=== PATIENT | female | born 1990 | race Hispanic/Latino ===

== ENCOUNTER 2019-08-31 10:59 | Observation (INO) | payer OTHER ==
[~2019-08-31] VITALS: Ht 160 cm; Wt 97.5 kg
[2019-08-31 11:56] LABS: APPEARANCE,URINE Turbid (CLEAR); BILIRUBIN,URINE Small (NEGATIVE); COLOR,URINE Dark Yellow (YELLOW); GLUCOSE, URINE (UA) Negative (NEGATIVE); KETONES,URINE >=80 mg/dL (NEGATIVE); LEUKOCYTE ESTERASE ,URINE Trace (NEGATIVE); NITRATE,URINE Negative (NEGATIVE); OCCULT BLOOD,URINE Negative (NEGATIVE); PH,URINE 6.5 (5.0-8.0); PROTEIN,URINE POS 2+ mg/dL (NEGATIVE)
[2019-08-31] MEDS ORDERED: LACTATED RINGERS 1000ML IV SCH (12:00)
[2019-08-31] MEDS ORDERED: ACETAMINOPHEN EXTRA STRENGTH 500 MG TABLET PO SCH (12:00)
[2019-08-31] MEDS ORDERED: ACETAMINOPHEN EXTRA STRENGTH 500 MG TABLET ONE (12:02)
[2019-08-31 12:14] LABS: MUCUS,URINE Moderate LPF (None Seen); SQUAMOUS EPITHELIAL CELL,UR Moderate /HPF (0-2)
[2019-08-31] MEDS ORDERED: HYDROXYZINE HCL 50 MG/ML 2 ML VIAL IM SCH (12:15)
[2019-08-31] MEDS ORDERED: MAGNESIUM HYDROXIDE 30 ML/UDCUP PO SCH (12:15)
[2019-08-31 12:16] LABS: BACTERIA,URINE Few /HPF (None Seen); RBC,URINE None Seen /HPF (0-1); WBC,URINE 0-1 /HPF (0-1)
[2019-08-31] MEDS ORDERED: PHARMACY COMMUNICATION MISC SCH (14:15)
[2019-08-31 14:42] LABS: BASOPHILS % (AUTO) 0.2 % (0.0-5.0); EOSINOPHILS % (AUTO) 2.5 % (0.0-8.0); HEMATOCRIT 34.1 % (36-48); LYMPHOCYTES % (AUTO) 8.4 % (21.0-51.0); MEAN CORPUSCULAR HEMOGLOBIN 29.2 pg (27.0-33.0); MEAN CORPUSCULAR HGB CONC 33.7 g/dL (32.0-36.0); MEAN CORPUSCULAR VOLUME 86.5 fL (79-99); MONOCYTES % (AUTO) 4.5 % (3.0-13.0); PLATELET COUNT (AUTO) 182 K/uL (130-400); RED BLOOD CELL COUNT(AUTO) 3.94 MIL/uL (4.00-5.50); WHITE BLOOD COUNT (AUTO) 9.9 K/uL (4.8-10.8)
[2019-08-31] MEDS ORDERED: DEXTROSE 5% IV SCH (15:00)
[2019-08-31] MEDS ORDERED: ZIDOVUDINE IV SCH (15:00)
[2019-08-31] MEDS ORDERED: WATER IV SCH (15:00)
== END 2019-08-31 16:00 | disposition home or self-care (01) ==
LOC: EDH 10:59 → LDH 11:00
PROVIDERS: ADMIT Obstetrics & Gynecology; ATTEND Obstetrics & Gynecology
DX: O62.9 Abnormality of forces of labor, unspecified (principal); Z3A.37 37 weeks gestation of pregnancy; Z88.8 Allergy status to other drugs, medicaments and biological substances
CPT/HCPCS: 36415; 76700; 76805; 81001; 85025; 96372; 99284; G0378 ×5; J3410; J7120; 96360; 96361; J3485; J7060

== ENCOUNTER 2019-09-16 16:30 | Inpatient (IN) | payer OTHER ==
[~2019-09-16] VITALS: Ht 160 cm; Wt 96.6 kg
[2019-09-16] MEDS ORDERED: MISOPROSTOL 100 MCG TABLET VG SCH (19:00)
[2019-09-16 19:16] LABS: MEAN CORPUSCULAR HEMOGLOBIN 28.6 pg (27.0-33.0); MEAN CORPUSCULAR HGB CONC 33.5 g/dL (32.0-36.0); MEAN CORPUSCULAR VOLUME 85.4 fL (79-99); PLATELET COUNT (AUTO) 188 K/uL (130-400); RED BLOOD CELL COUNT(AUTO) 3.98 MIL/uL (4.00-5.50); WHITE BLOOD COUNT (AUTO) 10.2 K/uL (4.8-10.8)
[2019-09-16 19:29] LABS: APPEARANCE,URINE Clear (CLEAR); BILIRUBIN,URINE Negative (NEGATIVE); COLOR,URINE Yellow (YELLOW); GLUCOSE, URINE (UA) Negative (NEGATIVE); KETONES,URINE 15 mg/dL (NEGATIVE); LEUKOCYTE ESTERASE ,URINE Trace (NEGATIVE); NITRATE,URINE Negative (NEGATIVE); OCCULT BLOOD,URINE Negative (NEGATIVE); PH,URINE 6.5 (5.0-8.0); PROTEIN,URINE Negative (NEGATIVE)
[2019-09-16 19:38] LABS: BACTERIA,URINE Few /HPF (None Seen); RBC,URINE None Seen /HPF (0-1)
[2019-09-16] MEDS: LACTATED RINGERS 1000ML 1,000 ML IV PRN (20:04)
[2019-09-16 22:22] VITALS: BP 119/72
[2019-09-17] MEDS: OXYTOCIN-LR 20 UNITS/1000 ML 1,000 ML IV SCH ×2 (03:38→19:00)
[2019-09-17] MEDS: LACTATED RINGERS 1000ML 1,000 ML IV PRN (03:38)
[2019-09-17] MEDS ORDERED: MEPERIDINE-PF 50 MG/ML SYG IVP ONE (07:30)
[2019-09-17] MEDS ORDERED: PROMETHAZINE HCL 25 MG/ML 1ML AMPULE IM SCH (07:30)
[2019-09-17] MEDS ORDERED: EPHEDRINE SULFATE 50 MG/ML AMPULE IVP PRN (08:45)
[2019-09-17] MEDS ORDERED: ROPIVACAINE 0.2% 100ML VIAL 100 ML EP SCH (08:45)
[2019-09-17] MEDS ORDERED: NALOXONE HCL 0.4 MG/1 ML ML IV PRN (08:45)
[2019-09-17] MEDS ORDERED: LACTATED RINGERS 500 ML 500 ML IV PRN (08:45)
[2019-09-17] MEDS ORDERED: FENTANYL CITRATE PF 50 MCG/1 ML 2ML VIAL ONE (09:17)
[2019-09-17] MEDS ORDERED: LANOLIN 30GM OINTMENT TP PRN (18:45)
[2019-09-17] MEDS ORDERED: BENZOCAINE/LANOLIN/ALOE VERA 60 ML AEROSOL TP PRN (18:45)
[2019-09-17] MEDS ORDERED: DIPH,PERTUSS(ACELL),TET VAC/PF 0.5 ML VIAL IM PRN (18:45)
[2019-09-17] MEDS ORDERED: MEASLES/MUMPS/RUBELLA VACCINE, LIVE 0.5 ML/VIAL SQ PRN (18:45)
[2019-09-17] MEDS ORDERED: WITCH HAZEL 1 PAD TP PRN (18:45)
[2019-09-17] MEDS ORDERED: MISOPROSTOL 200 MCG TABLET ONE (19:20)
[2019-09-17] MEDS ORDERED: MISOPROSTOL 200 MCG TABLET PR SCH (19:30)
[2019-09-17] MEDS: DOCUSATE SODIUM 100 MG CAP PO SCH ×2 (21:00→21:15)
[2019-09-17] MEDS: ACETAMINOPHEN 325 MG TAB PO PRN (21:15)
[2019-09-17 21:32] VITALS: BP 126/72
[2019-09-17] MEDS ORDERED: PREN-18 PO (21:48)
[2019-09-17 23:20] VITALS: BP 117/62
[2019-09-18] MEDS: CLINDAMYCIN 900 MG/D5% WATER 50 ML IV SCH ×2 (00:30→00:31)
[2019-09-18] MEDS: ACETAMINOPHEN 325 MG TAB PO PRN ×2 (01:41→13:17)
[2019-09-18 03:37] VITALS: BP 112/65
[2019-09-18 04:53] LABS: HEMATOCRIT 30.6 % (36-48); MEAN CORPUSCULAR HEMOGLOBIN 29.3 pg (27.0-33.0); MEAN CORPUSCULAR HGB CONC 33.7 g/dL (32.0-36.0); MEAN CORPUSCULAR VOLUME 86.9 fL (79-99); PLATELET COUNT (AUTO) 152 K/uL (130-400); RED BLOOD CELL COUNT(AUTO) 3.52 MIL/uL (4.00-5.50); RED CELL DISTRIBUTION WIDTH 17.2 % (11.0-15.5); WHITE BLOOD COUNT (AUTO) 20.2 K/uL (4.8-10.8)
[2019-09-18 07:47] VITALS: BP 123/71
[2019-09-18 08:10] LABS: HEPATITIS Bs ANTIGEN SCREEN P Negative (Negative)
[2019-09-18] MEDS: DOCUSATE SODIUM 100 MG CAP PO SCH (08:54)
[2019-09-18] MEDS: IBUPROFEN 600 MG TABLET PO PRN ×2 (08:56→17:30)
[2019-09-18 11:21] VITALS: BP 132/61
[2019-09-18 16:15] VITALS: BP 120/78
[2019-09-18] MEDS ORDERED: DOCU-116 PO (17:23)
[2019-09-18] MEDS ORDERED: IBUP-2070 PO (17:23)
--- NOTE | 2019-09-18 18:30 | NUR ---
pt is dismissed in stable condition, brought to private car via wheelchair by Isi Knight pcp Addendum: 09/18/19 at 1837 by JORGE L SMITH RN Amended: Links added.
== END 2019-09-18 18:30 | disposition home or self-care (01) | DRG 807 ==
LOC: LDH 16:30 → WSH 09-17 21:25 → PREOBSVTOIN 09-20 16:29
PROVIDERS: ADMIT Obstetrics & Gynecology; ATTEND Obstetrics & Gynecology
PROC: 10E0XZZ Delivery of Products of Conception, External Approach (ICD-10-PCS; principal; 2019-09-17)
PROC: 0W8NXZZ Division of Female Perineum, External Approach (ICD-10-PCS; 2019-09-17)
PROC: 3E0234Z Introduction of Serum, Toxoid and Vaccine into Muscle, Percutaneous Approach (ICD-10-PCS; 2019-09-17)
PROC: 3E0134Z Introduction of Serum, Toxoid and Vaccine into Subcutaneous Tissue, Percutaneous Approach (ICD-10-PCS; 2019-09-17)
PROC: 3E0R3BZ Introduction of Anesthetic Agent into Spinal Canal, Percutaneous Approach (ICD-10-PCS; 2019-09-17)
PROC: 00HU33Z Insertion of Infusion Device into Spinal Canal, Percutaneous Approach (ICD-10-PCS; 2019-09-17)
DX: O36.63X0 Maternal care for excessive fetal growth, third trimester, not applicable or unspecified (principal); Z37.0 Single live birth; O69.81X0 Labor and delivery complicated by cord around neck, without compression, not applicable or unspecified; O77.0 Labor and delivery complicated by meconium in amniotic fluid; Z23 Encounter for immunization; Z3A.39 39 weeks gestation of pregnancy
CPT/HCPCS: 36415; 81001; 85027; 86592; 86850; 86900; 86901; 87340; A4314; A4351; A4606; G0378; J2175; J2550; J2590; J3010; J3490; J7120